=== PATIENT | female | born 1970 | race African-American/Black ===

== ENCOUNTER 2019-01-25 15:02 | Emergency (ER) | payer OTHER ==
[~2019-01-25] VITALS: Ht 167.6 cm; Wt 74.8 kg
--- NOTE | 2019-01-25 15:12 | NUR ---
PT IS A/OX4, PRESENTS TO THE ER C/O SOB. PT REPORTS HX OF ASTHMA AND HAS ALWAYS FELT SOB BUT FELT WORSE TODAY AND RESCUE INHALER WAS INFFECTIVE. PT PRESENTS W/ AUDIBLE WHEEZING AND LABORED BREATHING. PT DENIES PAIN, C/P, DIZZINESS, HEADACHE, N/V/D. ER MD AT BEDSIDE FOR MSE.
[2019-01-25] MEDS ORDERED: IPRATROPIUM BROMIDE 0.5 MG/2.5 ML NEBU NEB ONE ×2 (15:15→16:45)
[2019-01-25] MEDS ORDERED: ALBUTEROL SULFATE 2.5 MG/3 ML NEBU NEB ONE ×2 (15:15→16:45)
[2019-01-25] MEDS ORDERED: methylPREDNISolone SOD SUCC 125 MG/2 ML VIAL IV ONE (15:15)
[2019-01-25] MEDS ORDERED: IPRATROPIUM BROMIDE 0.5 MG/2.5 ML NEBU ONE ×2 (15:24→16:45)
[2019-01-25] MEDS ORDERED: ALBUTEROL SULFATE 2.5 MG/ 0.5 ML NEBU ONE (15:24)
[2019-01-25 15:30] LABS: BASOPHILS % (AUTO) 0.7 % (0.0-2.0); EOSINOPHILS # (AUTO) 0.9 K/uL (0.0-0.7); EOSINOPHILS % (AUTO) 14.5 % (0.0-7.0); HEMATOCRIT 47.2 % (31.2-41.9); HEMOGLOBIN 16.2 g/dL (10.9-14.3); LYMPHOCYTES # (AUTO) 1.7 K/uL (20.0-40.0); MEAN CORPUSCULAR HEMOGLOBIN 30.7 uug (24.7-32.8); MEAN CORPUSCULAR HGB CONC 34 g/dL (32.3-35.6); MEAN CORPUSCULAR VOLUME 89.7 fL (75.5-95.3); MONOCYTES # (AUTO) 0.4 K/uL (2.0-10.0); MONOCYTES % (AUTO) 6.1 % (0.0-11.0); NEUTROPHILS # (AUTO) 3.3 K/uL (1.8-8.9); NEUTROPHILS % (AUTO) 51.7 % (38.5-71.5); PLATELET COUNT (AUTO) 255 K/uL (179-408); RED BLOOD CELL COUNT(AUTO) 5.26 MIL/uL (3.63-4.92); WHITE BLOOD COUNT (AUTO) 6.4 K/uL (3.8-11.8)
[2019-01-25] MEDS ORDERED: methylPREDNISolone SOD SUCC 125 MG/2 ML VIAL ONE (15:31)
[2019-01-25 15:43] LABS: CREATININE 0.9 mg/dL (0.6-1.3); POTASSIUM 2.9 mmol/L (3.5-5.1)
[2019-01-25 15:49] LABS: BILIRUBIN,DIRECT 0.2 mg/dL (0.0-0.2); BILIRUBIN,TOTAL 0.6 mg/dL (0.2-1.0); TOTAL PROTEIN, SERUM 7.6 g/dL (6.4-8.2)
[2019-01-25] MEDS ORDERED: POTASSIUM CHLORIDE 20 MEQ TAB.PRT.SR PO ONE (16:00)
[2019-01-25] MEDS ORDERED: POTASSIUM CHLORIDE 20 MEQ TAB.PRT.SR ONE (16:21)
[2019-01-25] MEDS ORDERED: ALBUTEROL SULFATE 2.5 MG/3 ML NEBU ONE (16:45)
--- NOTE | 2019-01-25 17:34 | NUR ---
Patient discharged to home in stable conditon. Written and verbal after care instructions given. Patient verbalizes understanding of instructions. ALL BELONGINGS W/ PT. PT SELF-AMBULATED W/O DIFFICULTY. 20G IV ACCESS IN RAC REMOVED PRIOR TO D/C - INNER CANNULA INTACT.
[2019-01-25 17:35] VITALS: BP 141/68
== END 2019-01-25 17:36 | disposition home or self-care (01) ==
LOC: ER 15:03
DX: J45.901 Unspecified asthma with (acute) exacerbation (principal); E87.6 Hypokalemia; R60.9 Edema, unspecified; Z88.0 Allergy status to penicillin
CPT/HCPCS: 36415; 71045; 80048; 80076; 83880; 84484; 85025; 93005; 94640; 94644; 96374; 99285; J2930; 70030-TC; A4663; J3590

== ENCOUNTER 2019-02-15 20:17 | Inpatient (IN) | payer MEDICAID, OTHER ==
[~2019-02-15] VITALS: Ht 167.6 cm; Wt 72.6 kg
[2019-02-15] MEDS ORDERED: PREDNISONE 20 MG (20:29)
[2019-02-15] MEDS ORDERED: SYMBICORT (20:29)
[2019-02-15] MEDS ORDERED: ALBUTEROL 90 MCG (20:29)
[2019-02-15] MEDS ORDERED: ACETYLCYST (20:29)
[2019-02-15] MEDS ORDERED: IBUPROFEN 800 MG (20:29)
[2019-02-15] MEDS ORDERED: methylPREDNISolone SOD SUCC 125 MG/2 ML VIAL IV ONE (20:45)
[2019-02-15] MEDS ORDERED: ALBUTEROL SULFATE 2.5 MG/3 ML NEBU NEB ONE (20:45)
[2019-02-15] MEDS ORDERED: MAGNESIUM SULFATE 2 GM in IV DEXTROSE 5% 100 ML IV ONE (20:45)
[2019-02-15] MEDS ORDERED: IV NORMAL SALINE 1000 ML BAG IV ONE ×2 (20:45→21:00)
[2019-02-15] MEDS ORDERED: IPRATROPIUM BROMIDE 0.5 MG/2.5 ML NEBU NEB ONE (20:45)
[2019-02-15] MEDS ORDERED: IPRATROPIUM BROMIDE 0.5 MG/2.5 ML NEBU ONE (20:56)
[2019-02-15] MEDS ORDERED: ALBUTEROL SULFATE 2.5 MG/ 0.5 ML NEBU ONE (20:56)
[2019-02-15] MEDS ORDERED: methylPREDNISolone SOD SUCC 125 MG/2 ML VIAL ONE (21:03)
[2019-02-15] MEDS ORDERED: MAGNESIUM SULFATE 1 GM/2 ML VIAL ONE (21:04)
[2019-02-15 21:09] LABS: BASOPHILS # (AUTO) 0.1 K/uL (0.0-8.0); BASOPHILS % (AUTO) 1.4 % (0.0-2.0); CREATININE 0.7 mg/dL (0.6-1.3); EOSINOPHILS % (AUTO) 16.3 % (0.0-7.0); HEMATOCRIT 44.7 % (31.2-41.9); HEMOGLOBIN 15.3 g/dL (10.9-14.3); LYMPHOCYTES # (AUTO) 1.7 K/uL (20.0-40.0); LYMPHOCYTES % (AUTO) 28.8 % (20.5-51.5); MEAN CORPUSCULAR HEMOGLOBIN 30.9 uug (24.7-32.8); MEAN CORPUSCULAR HGB CONC 34 g/dL (32.3-35.6); MEAN CORPUSCULAR VOLUME 90.1 fL (75.5-95.3); MONOCYTES # (AUTO) 0.5 K/uL (2.0-10.0); MONOCYTES % (AUTO) 8.7 % (0.0-11.0); NEUTROPHILS # (AUTO) 2.6 K/uL (1.8-8.9); NEUTROPHILS % (AUTO) 44.8 % (38.5-71.5); PLATELET COUNT (AUTO) 294 K/uL (179-408); RED BLOOD CELL COUNT(AUTO) 4.95 MIL/uL (3.63-4.92); WHITE BLOOD COUNT (AUTO) 5.8 K/uL (3.8-11.8)
[2019-02-15] MEDS ORDERED: ONDANSETRON 4 MG/2 ML VIAL IV PRN (23:30)
[2019-02-15] MEDS ORDERED: ACETAMINOPHEN 325 MG TABLET PO PRN (23:30)
[2019-02-15] MEDS ORDERED: Z GUARD REMEDY PASTE 57 GM TUBE TOP PRN (23:30)
[2019-02-15] MEDS ORDERED: MAGNESIUM HYDROXIDE 30 ML LIQUID UDC PO PRN (23:30)
[2019-02-16 00:31] VITALS: BP 128/86
[2019-02-16] MEDS: IV NS 1000 ML 1,000 ML IV PRN ×2 (01:02→13:31)
[2019-02-16] MEDS: ALBUTEROL SULFATE 2.5 MG/3 ML NEBU NEB SCH ×6 (02:24→22:49)
[2019-02-16] MEDS: IPRATROPIUM BROMIDE 0.5 MG/2.5 ML NEBU NEB SCH ×6 (02:24→22:49)
[2019-02-16 04:00] VITALS: BP 122/62
[2019-02-16 06:30] LABS: HEMATOCRIT 40.2 % (31.2-41.9); LYMPHOCYTES # (AUTO) 0.5 K/uL (20.0-40.0); LYMPHOCYTES % (AUTO) 7.8 % (20.5-51.5); MEAN CORPUSCULAR HEMOGLOBIN 31.1 uug (24.7-32.8); MEAN CORPUSCULAR HGB CONC 35 g/dL (32.3-35.6); MONOCYTES # (AUTO) 0.1 K/uL (2.0-10.0); NEUTROPHILS % (AUTO) 91.2 % (38.5-71.5); PLATELET COUNT (AUTO) 283 K/uL (179-408); RED BLOOD CELL COUNT(AUTO) 4.51 MIL/uL (3.63-4.92); WHITE BLOOD COUNT (AUTO) 6.6 K/uL (3.8-11.8)
[2019-02-16] MEDS: PANTOPRAZOLE SODIUM 40 MG TABLET.DR PO SCH (06:30)
[2019-02-16 06:48] LABS: CREATININE 0.8 mg/dL (0.6-1.3); MAGNESIUM 2.2 mg/dL (1.8-2.4); PHOSPHOROUS 1.7 mg/dL (2.5-4.9); POTASSIUM 3.9 mmol/L (3.5-5.1)
[2019-02-16 07:01] LABS: THYROID STIMULATING HORMONE 0.564 mIU/mL (0.358-3.740)
[2019-02-16] MEDS ORDERED: methylPREDNISolone SOD SUCC 40 MG/ML VIAL IV SCH (09:00)
[2019-02-16] MEDS ORDERED: ACET200V4 IH (11:05)
[2019-02-16] MEDS ORDERED: ALBU8HFA4 INH (11:07)
[2019-02-16] MEDS ORDERED: IBUP-1957 PO (11:08)
[2019-02-16] MEDS ORDERED: BUDE10.2 INH (11:09)
[2019-02-16] MEDS ORDERED: HYDR25TA4 PO (11:09)
[2019-02-16] MEDS ORDERED: MONT10TA22 PO (11:10)
[2019-02-16] MEDS ORDERED: NIFE60TA69 PO (11:10)
[2019-02-16] MEDS ORDERED: PANT40TA2 PO (11:11)
[2019-02-16] MEDS ORDERED: IPRA3AMP23 IH (11:11)
[2019-02-16 11:16] VITALS: BP 127/77
[2019-02-16] MEDS: methylPREDNISolone SOD SUCC 40 MG/ML VIAL IV SCH ×2 (14:29→21:34)
[2019-02-16] MEDS: LEVOFLOXACIN 500 MG TABLET PO SCH (14:29)
[2019-02-16 15:10] VITALS: BP 143/83
[2019-02-16] MEDS ORDERED: NEUTRA PHOS PACKET PO ONE (15:45)
[2019-02-16] MEDS: FLUTICASONE/VILANTEROL 1 EACH BLST.W.DEV INH SCH (16:30)
[2019-02-16 20:00] VITALS: BP 166/99
[2019-02-17] MEDS: MELATONIN 3 MG TABLET PO PRN ×2 (00:36→22:38)
[2019-02-17] MEDS ORDERED: NIFEdipine XL 60 MG TABSR PO ONE (01:30)
[2019-02-17] MEDS ORDERED: HYDROCHLOROTHIAZIDE 25 MG TABLET PO ONE (01:30)
[2019-02-17] MEDS: IPRATROPIUM BROMIDE 0.5 MG/2.5 ML NEBU NEB SCH ×5 (02:57→19:55)
[2019-02-17] MEDS: ALBUTEROL SULFATE 2.5 MG/3 ML NEBU NEB SCH ×5 (02:57→19:55)
[2019-02-17 05:28] VITALS: BP 143/82
[2019-02-17] MEDS: methylPREDNISolone SOD SUCC 40 MG/ML VIAL IV SCH ×3 (05:58→22:30)
[2019-02-17] MEDS: PANTOPRAZOLE SODIUM 40 MG TABLET.DR PO SCH (06:02)
[2019-02-17] MEDS: IV NS 1000 ML 1,000 ML IV PRN ×3 (06:38→22:48)
[2019-02-17 07:00] LABS: CREATININE 0.8 mg/dL (0.6-1.3); PHOSPHOROUS 3.4 mg/dL (2.5-4.9); POTASSIUM 3.8 mmol/L (3.5-5.1)
[2019-02-17] MEDS: NIFEdipine XL 60 MG TABSR PO SCH (08:33)
[2019-02-17] MEDS: HYDROCHLOROTHIAZIDE 25 MG TABLET PO SCH (08:33)
[2019-02-17] MEDS: MONTELUKAST SODIUM 10 MG TABLET PO SCH (08:34)
[2019-02-17] MEDS: FLUTICASONE/VILANTEROL 1 EACH BLST.W.DEV INH SCH (08:34)
[2019-02-17] MEDS ORDERED: PANTOPRAZOLE SODIUM 40 MG TABLET.DR PO SCH (09:00)
[2019-02-17 11:12] VITALS: BP 123/71
[2019-02-17] MEDS: LEVOFLOXACIN 500 MG TABLET PO SCH (14:23)
[2019-02-17 15:32] VITALS: BP 125/86
[2019-02-17 20:08] VITALS: BP 129/69
[2019-02-18] MEDS: IPRATROPIUM BROMIDE 0.5 MG/2.5 ML NEBU NEB SCH ×7 (02:50→23:31)
[2019-02-18] MEDS: ALBUTEROL SULFATE 2.5 MG/3 ML NEBU NEB SCH ×7 (02:50→23:31)
[2019-02-18] MEDS: PANTOPRAZOLE SODIUM 40 MG TABLET.DR PO SCH (06:46)
[2019-02-18] MEDS: methylPREDNISolone SOD SUCC 40 MG/ML VIAL IV SCH ×2 (06:51→20:43)
[2019-02-18 06:53] VITALS: BP 122/71
[2019-02-18 07:29] LABS: BASOPHILS % (AUTO) 0.2 % (0.0-2.0); HEMATOCRIT 39.2 % (31.2-41.9); HEMOGLOBIN 13.7 g/dL (10.9-14.3); LYMPHOCYTES # (AUTO) 0.8 K/uL (20.0-40.0); LYMPHOCYTES % (AUTO) 8.4 % (20.5-51.5); MEAN CORPUSCULAR HEMOGLOBIN 31.4 uug (24.7-32.8); MEAN CORPUSCULAR HGB CONC 35 g/dL (32.3-35.6); MEAN CORPUSCULAR VOLUME 90.2 fL (75.5-95.3); MONOCYTES # (AUTO) 0.4 K/uL (2.0-10.0); MONOCYTES % (AUTO) 3.9 % (0.0-11.0); NEUTROPHILS % (AUTO) 87.5 % (38.5-71.5); PLATELET COUNT (AUTO) 271 K/uL (179-408); RED BLOOD CELL COUNT(AUTO) 4.35 MIL/uL (3.63-4.92)
[2019-02-18 07:36] LABS: CREATININE 0.8 mg/dL (0.6-1.3); MAGNESIUM 1.7 mg/dL (1.8-2.4); PHOSPHOROUS 3.2 mg/dL (2.5-4.9); POTASSIUM 3.5 mmol/L (3.5-5.1)
[2019-02-18 07:46] LABS: WHITE BLOOD COUNT (AUTO) 9.1 K/uL (3.8-11.8)
[2019-02-18] MEDS: HYDROCHLOROTHIAZIDE 25 MG TABLET PO SCH (08:33)
[2019-02-18] MEDS: MONTELUKAST SODIUM 10 MG TABLET PO SCH (08:33)
[2019-02-18] MEDS: NIFEdipine XL 60 MG TABSR PO SCH (08:34)
[2019-02-18] MEDS ORDERED: MAGNESIUM OXIDE 400 MG TABLET PO ONE (10:15)
[2019-02-18 11:45] VITALS: BP 126/81
[2019-02-18] MEDS: LEVOFLOXACIN 500 MG TABLET PO SCH (13:36)
[2019-02-18 16:02] VITALS: BP 123/85
[2019-02-18 20:23] VITALS: BP 114/79
[2019-02-18] MEDS: MELATONIN 3 MG TABLET PO PRN (23:27)
[2019-02-19] MEDS: IPRATROPIUM BROMIDE 0.5 MG/2.5 ML NEBU NEB SCH ×6 (03:19→22:39)
[2019-02-19] MEDS: ALBUTEROL SULFATE 2.5 MG/3 ML NEBU NEB SCH ×6 (03:19→22:39)
[2019-02-19] MEDS: PANTOPRAZOLE SODIUM 40 MG TABLET.DR PO SCH (06:30)
[2019-02-19 06:35] LABS: CREATININE 0.8 mg/dL (0.6-1.3); MAGNESIUM 1.8 mg/dL (1.8-2.4); PHOSPHOROUS 3.5 mg/dL (2.5-4.9); POTASSIUM 3.4 mmol/L (3.5-5.1)
[2019-02-19 06:38] LABS: BASOPHILS % (AUTO) 0.2 % (0.0-2.0); HEMATOCRIT 41.2 % (31.2-41.9); HEMOGLOBIN 14.4 g/dL (10.9-14.3); LYMPHOCYTES # (AUTO) 0.9 K/uL (20.0-40.0); LYMPHOCYTES % (AUTO) 14.9 % (20.5-51.5); MEAN CORPUSCULAR HEMOGLOBIN 31.2 uug (24.7-32.8); MEAN CORPUSCULAR HGB CONC 35 g/dL (32.3-35.6); MEAN CORPUSCULAR VOLUME 89.3 fL (75.5-95.3); MONOCYTES # (AUTO) 0.5 K/uL (2.0-10.0); MONOCYTES % (AUTO) 7.5 % (0.0-11.0); NEUTROPHILS # (AUTO) 4.9 K/uL (1.8-8.9); NEUTROPHILS % (AUTO) 77.4 % (38.5-71.5); PLATELET COUNT (AUTO) 282 K/uL (179-408); RED BLOOD CELL COUNT(AUTO) 4.61 MIL/uL (3.63-4.92); WHITE BLOOD COUNT (AUTO) 6.4 K/uL (3.8-11.8)
[2019-02-19 06:46] VITALS: BP 136/95
[2019-02-19] MEDS ORDERED: POTASSIUM CHLORIDE 20 MEQ TAB.PRT.SR PO ONE (08:30)
[2019-02-19] MEDS: methylPREDNISolone SOD SUCC 40 MG/ML VIAL IV SCH ×2 (08:44→20:09)
[2019-02-19] MEDS: MONTELUKAST SODIUM 10 MG TABLET PO SCH (08:44)
[2019-02-19] MEDS: NIFEdipine XL 60 MG TABSR PO SCH (08:45)
[2019-02-19] MEDS: HYDROCHLOROTHIAZIDE 25 MG TABLET PO SCH (08:45)
[2019-02-19 11:38] VITALS: BP 128/86
[2019-02-19] MEDS: LEVOFLOXACIN 500 MG TABLET PO SCH (13:28)
[2019-02-19 16:10] VITALS: BP 113/69
[2019-02-19 20:11] VITALS: BP 115/75
[2019-02-19] MEDS: MELATONIN 3 MG TABLET PO PRN (23:30)
[2019-02-20] MEDS: ALBUTEROL SULFATE 2.5 MG/3 ML NEBU NEB SCH ×4 (03:20→15:41)
[2019-02-20] MEDS: IPRATROPIUM BROMIDE 0.5 MG/2.5 ML NEBU NEB SCH ×4 (03:20→15:41)
[2019-02-20 06:33] LABS: BASOPHILS % (AUTO) 0.2 % (0.0-2.0); EOSINOPHILS % (AUTO) 0.1 % (0.0-7.0); HEMOGLOBIN 14.1 g/dL (10.9-14.3); LYMPHOCYTES # (AUTO) 1.1 K/uL (20.0-40.0); LYMPHOCYTES % (AUTO) 13.5 % (20.5-51.5); MEAN CORPUSCULAR HEMOGLOBIN 31.2 uug (24.7-32.8); MEAN CORPUSCULAR HGB CONC 35 g/dL (32.3-35.6); MEAN CORPUSCULAR VOLUME 88.3 fL (75.5-95.3); MONOCYTES # (AUTO) 0.7 K/uL (2.0-10.0); MONOCYTES % (AUTO) 8.8 % (0.0-11.0); NEUTROPHILS # (AUTO) 6.2 K/uL (1.8-8.9); NEUTROPHILS % (AUTO) 77.4 % (38.5-71.5); PLATELET COUNT (AUTO) 280 K/uL (179-408); RED BLOOD CELL COUNT(AUTO) 4.53 MIL/uL (3.63-4.92)
[2019-02-20] MEDS: PANTOPRAZOLE SODIUM 40 MG TABLET.DR PO SCH (06:33)
[2019-02-20 06:48] LABS: CREATININE 0.8 mg/dL (0.6-1.3); MAGNESIUM 1.9 mg/dL (1.8-2.4); PHOSPHOROUS 3.7 mg/dL (2.5-4.9); POTASSIUM 3.6 mmol/L (3.5-5.1)
[2019-02-20 06:53] VITALS: BP 125/72
[2019-02-20] MEDS: HYDROCHLOROTHIAZIDE 25 MG TABLET PO SCH (08:17)
[2019-02-20] MEDS: NIFEdipine XL 60 MG TABSR PO SCH (08:17)
[2019-02-20] MEDS: MONTELUKAST SODIUM 10 MG TABLET PO SCH (08:17)
[2019-02-20] MEDS: methylPREDNISolone SOD SUCC 40 MG/ML VIAL IV SCH (08:25)
[2019-02-20] MEDS ORDERED: IPRA12.9 INH (10:58)
[2019-02-20] MEDS ORDERED: ALBU2.5V38 NEB (10:58)
[2019-02-20] MEDS ORDERED: LORA10TA7 PO (10:58)
[2019-02-20] MEDS ORDERED: METH4TAB3 PO (10:58)
[2019-02-20] MEDS ORDERED: LEVO500T2 PO (10:58)
[2019-02-20 11:20] VITALS: BP 124/86
[2019-02-20] MEDS: LEVOFLOXACIN 500 MG TABLET PO SCH (13:31)
[2019-02-20 15:40] VITALS: BP 129/85
[2019-02-20] MEDS ORDERED: predniSONE 20 MG TABLET PO SCH (18:00)
== END 2019-02-20 17:50 | disposition home or self-care (01) | DRG 141 ==
LOC: ER 20:19 → TELE3 23:39 → MEDSURG3 02-16 11:10
PROVIDERS: ADMIT Registered Nurse; ATTEND Registered Nurse
DX: J45.901 Unspecified asthma with (acute) exacerbation (principal); J18.9 Pneumonia, unspecified organism; E83.39 Other disorders of phosphorus metabolism; K21.9 Gastro-esophageal reflux disease without esophagitis; I10 Essential (primary) hypertension; E86.0 Dehydration; J32.9 Chronic sinusitis, unspecified; E87.6 Hypokalemia; J34.2 Deviated nasal septum; Z90.710 Acquired absence of both cervix and uterus; E66.9 Obesity, unspecified
CPT/HCPCS: 36415; 70220; 70486; 71045; 83735; 84100; 84443; 85025; 93005; 94640; 94664; A4663; G0378; J2920; J2930; J3475; J3590; J7030; J7060; J7512

== ENCOUNTER 2019-02-28 15:02 | Inpatient (IN) | payer MEDICAID ==
[~2019-02-28] VITALS: Ht 167.6 cm; Wt 77.1 kg
[~2019-02-28 15:02] MED LIST: ACET200V4 IH; ALBU2.5V38 NEB; ALBU8HFA4 INH; BUDE10.2 INH; HYDR25TA4 PO; IBUP-1957 PO; IPRA12.9 INH; IPRA3AMP23 IH; LEVO500T2 PO; LORA10TA7 PO; METH4TAB3 PO; MONT10TA22 PO; NIFE60TA69 PO; PANT40TA2 PO
[2019-02-28] MEDS ORDERED: PANTOPRAZOLE SODIUM 40 MG VIAL IV ONE (15:30)
[2019-02-28] MEDS ORDERED: ALBUTEROL SULFATE 2.5 MG/3 ML NEBU NEB ONE (15:30)
[2019-02-28] MEDS ORDERED: DICYCLOMINE HCL LIQ 10 MG/5 ML UDC PO ONE (15:30)
[2019-02-28] MEDS ORDERED: IPRATROPIUM BROMIDE 0.5 MG/2.5 ML NEBU NEB ONE (15:30)
[2019-02-28] MEDS ORDERED: MAG HYDROX/AL HYDROX/SIMETH 30 ML LIQUID UDC PO ONE (15:30)
[2019-02-28] MEDS ORDERED: methylPREDNISolone SOD SUCC 125 MG/2 ML VIAL IV ONE (15:30)
[2019-02-28] MEDS ORDERED: IV NORMAL SALINE 1000 ML BAG IV ONE (15:30)
[2019-02-28] MEDS ORDERED: DICYCLOMINE HCL LIQ 10 MG/5 ML UDC ONE (15:32)
[2019-02-28] MEDS ORDERED: methylPREDNISolone SOD SUCC 125 MG/2 ML VIAL ONE (15:32)
[2019-02-28] MEDS ORDERED: PANTOPRAZOLE SODIUM 40 MG VIAL ONE (15:32)
[2019-02-28] MEDS ORDERED: MAG HYDROX/AL HYDROX/SIMETH 30 ML LIQUID UDC ONE ×2 (15:33→15:34)
[2019-02-28] MEDS ORDERED: IPRATROPIUM BROMIDE 0.5 MG/2.5 ML NEBU ONE (15:35)
[2019-02-28] MEDS ORDERED: ALBUTEROL SULFATE 2.5 MG/3 ML NEBU ONE (15:35)
[2019-02-28 15:50] LABS: BASOPHILS # (AUTO) 0.1 K/uL (0.0-8.0); BASOPHILS % (AUTO) 0.7 % (0.0-2.0); EOSINOPHILS # (AUTO) 1.1 K/uL (0.0-0.7); EOSINOPHILS % (AUTO) 11.8 % (0.0-7.0); HEMATOCRIT 45.3 % (31.2-41.9); HEMOGLOBIN 15.5 g/dL (10.9-14.3); LYMPHOCYTES # (AUTO) 2.6 K/uL (20.0-40.0); LYMPHOCYTES % (AUTO) 27.8 % (20.5-51.5); MEAN CORPUSCULAR HEMOGLOBIN 30.7 uug (24.7-32.8); MEAN CORPUSCULAR HGB CONC 34 g/dL (32.3-35.6); MEAN CORPUSCULAR VOLUME 89.8 fL (75.5-95.3); MONOCYTES # (AUTO) 0.8 K/uL (2.0-10.0); MONOCYTES % (AUTO) 7.9 % (0.0-11.0); NEUTROPHILS # (AUTO) 4.9 K/uL (1.8-8.9); NEUTROPHILS % (AUTO) 51.8 % (38.5-71.5); PLATELET COUNT (AUTO) 282 K/uL (179-408); RED BLOOD CELL COUNT(AUTO) 5.04 MIL/uL (3.63-4.92); WHITE BLOOD COUNT (AUTO) 9.5 K/uL (3.8-11.8)
[2019-02-28 16:02] LABS: CREATININE 0.7 mg/dL (0.6-1.3); POTASSIUM 3.6 mmol/L (3.5-5.1)
[2019-02-28 16:15] LABS: BILIRUBIN,DIRECT 0.1 mg/dL (0.0-0.2); BILIRUBIN,TOTAL 0.7 mg/dL (0.2-1.0); TOTAL PROTEIN, SERUM 6.6 g/dL (6.4-8.2)
[2019-02-28] MEDS ORDERED: MAGNESIUM HYDROXIDE 30 ML LIQUID UDC PO PRN (17:15)
[2019-02-28] MEDS ORDERED: ACETAMINOPHEN 325 MG TABLET PO PRN (17:15)
[2019-02-28] MEDS ORDERED: ZOLPIDEM 5 MG TABLET PO PRN (17:15)
[2019-02-28] MEDS ORDERED: ONDANSETRON 4 MG/2 ML VIAL IV PRN (17:15)
[2019-02-28] MEDS ORDERED: Z GUARD REMEDY PASTE 57 GM TUBE TOP PRN (17:15)
[2019-02-28] MEDS ORDERED: IBUPROFEN 800 MG TABLET PO PRN (17:15)
[2019-02-28] MEDS ORDERED: HYDROCODONE/APAP 5-325MG TABLET PO PRN (17:15)
[2019-02-28 17:35] VITALS: BP 124/68
[2019-02-28] MEDS: methylPREDNISolone SOD SUCC 125 MG/2 ML VIAL IV SCH ×2 (18:54→23:51)
[2019-02-28 19:58] VITALS: BP 108/76
[2019-02-28] MEDS: GUAIFENESIN LA 600 MG TABLET.SA PO SCH (21:08)
[2019-03-01] VITALS: BP 110/62
[2019-03-01] MEDS: IPRATROPIUM BROMIDE 0.5 MG/2.5 ML NEBU NEB PRN ×4 (03:15→21:28)
[2019-03-01] MEDS: ALBUTEROL SULFATE 2.5 MG/3 ML NEBU NEB PRN ×4 (03:15→21:29)
[2019-03-01 04:00] VITALS: BP 113/68
[2019-03-01] MEDS: methylPREDNISolone SOD SUCC 125 MG/2 ML VIAL IV SCH ×4 (06:25→23:58)
[2019-03-01 07:01] LABS: CREATININE 0.8 mg/dL (0.6-1.3); POTASSIUM 3.6 mmol/L (3.5-5.1)
[2019-03-01 07:13] LABS: THYROID STIMULATING HORMONE 0.335 mIU/mL (0.358-3.740)
[2019-03-01 07:28] LABS: BASOPHILS % (AUTO) 0.2 % (0.0-2.0); EOSINOPHILS % (AUTO) 0.1 % (0.0-7.0); HEMATOCRIT 41.3 % (31.2-41.9); HEMOGLOBIN 14.4 g/dL (10.9-14.3); LYMPHOCYTES # (AUTO) 0.6 K/uL (20.0-40.0); LYMPHOCYTES % (AUTO) 4.2 % (20.5-51.5); MEAN CORPUSCULAR HEMOGLOBIN 31.1 uug (24.7-32.8); MEAN CORPUSCULAR HGB CONC 35 g/dL (32.3-35.6); MEAN CORPUSCULAR VOLUME 89.1 fL (75.5-95.3); MONOCYTES # (AUTO) 0.1 K/uL (2.0-10.0); NEUTROPHILS # (AUTO) 13.1 K/uL (1.8-8.9); NEUTROPHILS % (AUTO) 94.5 % (38.5-71.5); PLATELET COUNT (AUTO) 277 K/uL (179-408); RED BLOOD CELL COUNT(AUTO) 4.63 MIL/uL (3.63-4.92)
[2019-03-01 07:47] LABS: WHITE BLOOD COUNT (AUTO) 13.9 K/uL (3.8-11.8)
[2019-03-01] MEDS: PANTOPRAZOLE SODIUM 40 MG TABLET.DR PO SCH (08:41)
[2019-03-01] MEDS: NIFEdipine XL 60 MG TABSR PO SCH (08:41)
[2019-03-01] MEDS: GUAIFENESIN LA 600 MG TABLET.SA PO SCH ×2 (08:41→20:45)
[2019-03-01] MEDS: MONTELUKAST SODIUM 10 MG TABLET PO SCH (08:41)
[2019-03-01] MEDS: HYDROCHLOROTHIAZIDE 25 MG TABLET PO SCH (08:42)
[2019-03-01 11:47] VITALS: BP 134/81
[2019-03-01] MEDS ORDERED: MAG HYDROX/AL HYDROX/SIMETH 30 ML LIQUID UDC PO PRN (14:30)
[2019-03-01 16:08] VITALS: BP 126/81
[2019-03-01 20:25] VITALS: BP 134/85
[2019-03-02 00:17] VITALS: BP 122/79
[2019-03-02] MEDS: IPRATROPIUM BROMIDE 0.5 MG/2.5 ML NEBU NEB PRN (02:31)
[2019-03-02] MEDS: ALBUTEROL SULFATE 2.5 MG/3 ML NEBU NEB PRN (02:31)
[2019-03-02 04:25] VITALS: BP 100/77
[2019-03-02] MEDS: methylPREDNISolone SOD SUCC 125 MG/2 ML VIAL IV SCH ×4 (05:45→23:31)
[2019-03-02] MEDS: PANTOPRAZOLE SODIUM 40 MG TABLET.DR PO SCH (08:33)
[2019-03-02] MEDS: GUAIFENESIN LA 600 MG TABLET.SA PO SCH ×2 (08:33→20:18)
[2019-03-02] MEDS: HYDROCHLOROTHIAZIDE 25 MG TABLET PO SCH (08:33)
[2019-03-02] MEDS: MONTELUKAST SODIUM 10 MG TABLET PO SCH (08:34)
[2019-03-02] MEDS: NIFEdipine XL 60 MG TABSR PO SCH (08:34)
[2019-03-02] MEDS: LEVOFLOXACIN 750MG/D5W 750 MG in PREMIXED 1 EACH IV SCH (10:27)
[2019-03-02 11:46] VITALS: BP 128/83
[2019-03-02] MEDS: ALBUTEROL SULFATE 2.5 MG/3 ML NEBU NEB SCH ×2 (12:48→19:45)
[2019-03-02] MEDS: IPRATROPIUM BROMIDE 0.5 MG/2.5 ML NEBU NEB SCH ×2 (12:48→19:45)
[2019-03-02 16:13] VITALS: BP 125/78
[2019-03-02 19:53] VITALS: BP 137/75
[2019-03-03] MEDS: ALBUTEROL SULFATE 2.5 MG/3 ML NEBU NEB SCH ×2 (02:20→08:01)
[2019-03-03] MEDS: IPRATROPIUM BROMIDE 0.5 MG/2.5 ML NEBU NEB SCH ×2 (02:20→08:00)
[2019-03-03 04:35] VITALS: BP 127/70
[2019-03-03] MEDS: methylPREDNISolone SOD SUCC 125 MG/2 ML VIAL IV SCH (05:45)
[2019-03-03] MEDS: HYDROCHLOROTHIAZIDE 25 MG TABLET PO SCH (08:21)
[2019-03-03] MEDS: PANTOPRAZOLE SODIUM 40 MG TABLET.DR PO SCH (08:22)
[2019-03-03] MEDS: GUAIFENESIN LA 600 MG TABLET.SA PO SCH (08:22)
[2019-03-03] MEDS: MONTELUKAST SODIUM 10 MG TABLET PO SCH (08:22)
[2019-03-03] MEDS: LEVOFLOXACIN 750MG/D5W 750 MG in PREMIXED 1 EACH IV SCH (08:22)
[2019-03-03] MEDS: NIFEdipine XL 60 MG TABSR PO SCH (08:22)
[2019-03-03 11:52] VITALS: BP 135/85
== END 2019-03-03 14:15 | disposition home or self-care (01) | DRG 140 ==
LOC: ER 15:02 → TELE3 17:14 → MEDSURG3 03-02 09:25
DX: J47.1 Bronchiectasis with (acute) exacerbation (principal); J96.01 Acute respiratory failure with hypoxia; J45.901 Unspecified asthma with (acute) exacerbation; K21.9 Gastro-esophageal reflux disease without esophagitis; Z88.0 Allergy status to penicillin; Z91.013 Allergy to seafood; Z79.51 Long term (current) use of inhaled steroids; Z79.899 Other long term (current) drug therapy; E66.9 Obesity, unspecified; Z68.27 Body mass index [BMI] 27.0-27.9, adult; I10 Essential (primary) hypertension
CPT/HCPCS: 36415; 70030-TC; 71045; 71250; 83735; 84100; 84443; 85025; 93005; 94640; 94664; A4663; C9113; G0378; J1956; J2930; J3590; J7030; J7050

== ENCOUNTER 2019-03-24 07:32 | Emergency (ER) | payer MEDICAID, OTHER ==
[~2019-03-24] VITALS: Ht 160 cm; Wt 72.6 kg
[~2019-03-24 07:32] MED LIST changes: -IPRA12.9 INH; -IPRA3AMP23 IH; -LEVO500T2 PO; -METH4TAB3 PO
--- NOTE | 2019-03-24 07:50 | NUR ---
Patient seen by
[2019-03-24] MEDS ORDERED: IPRATROPIUM BROMIDE 0.5 MG/2.5 ML NEBU NEB ONE ×2 (08:00→10:30)
[2019-03-24] MEDS ORDERED: MAGNESIUM SULFATE 2 GM in IV DEXTROSE 5% 100 ML IV ONE (08:00)
[2019-03-24] MEDS ORDERED: methylPREDNISolone SOD SUCC 125 MG/2 ML VIAL IV ONE (08:00)
[2019-03-24] MEDS ORDERED: ALBUTEROL SULFATE 2.5 MG/3 ML NEBU NEB ONE ×2 (08:00→10:30)
[2019-03-24] MEDS ORDERED: methylPREDNISolone SOD SUCC 125 MG/2 ML VIAL ONE (08:27)
[2019-03-24] MEDS ORDERED: MAGNESIUM SULFATE/D5W 200 ML ONE (08:27)
[2019-03-24] MEDS ORDERED: IPRATROPIUM BROMIDE 0.5 MG/2.5 ML NEBU ONE ×2 (08:28→10:40)
[2019-03-24] MEDS ORDERED: ALBUTEROL SULFATE 2.5 MG/3 ML NEBU ONE ×2 (08:28→10:40)
[2019-03-24] MEDS ORDERED: ALBUTEROL SULFATE 2.5 MG/ 0.5 ML NEBU ONE (08:29)
[2019-03-24 08:59] LABS: CREATININE 0.8 mg/dL (0.6-1.3); POTASSIUM 3.6 mmol/L (3.5-5.1)
[2019-03-24 09:06] LABS: BASOPHILS % (AUTO) 0.6 % (0.0-2.0); EOSINOPHILS % (AUTO) 17.9 % (0.0-7.0); HEMOGLOBIN 15.3 g/dL (10.9-14.3); LYMPHOCYTES # (AUTO) 1.7 K/uL (20.0-40.0); LYMPHOCYTES % (AUTO) 31.2 % (20.5-51.5); MEAN CORPUSCULAR HEMOGLOBIN 31.3 uug (24.7-32.8); MEAN CORPUSCULAR HGB CONC 35 g/dL (32.3-35.6); MEAN CORPUSCULAR VOLUME 90.3 fL (75.5-95.3); MONOCYTES # (AUTO) 0.5 K/uL (2.0-10.0); MONOCYTES % (AUTO) 9.6 % (0.0-11.0); NEUTROPHILS # (AUTO) 2.3 K/uL (1.8-8.9); NEUTROPHILS % (AUTO) 40.7 % (38.5-71.5); PLATELET COUNT (AUTO) 245 K/uL (179-408); RED BLOOD CELL COUNT(AUTO) 4.87 MIL/uL (3.63-4.92); WHITE BLOOD COUNT (AUTO) 5.6 K/uL (3.8-11.8)
--- NOTE | 2019-03-24 10:35 | NUR ---
second breathing treatment administered by RT
--- NOTE | 2019-03-24 11:16 | NUR ---
Patient given discharge instructions, prescription. IV removed. patient being discharged.
[2019-03-24 11:17] VITALS: BP 117/74
== END 2019-03-24 11:19 | disposition home or self-care (01) ==
LOC: ER 07:32
DX: J45.901 Unspecified asthma with (acute) exacerbation (principal); J44.9 Chronic obstructive pulmonary disease, unspecified; K21.9 Gastro-esophageal reflux disease without esophagitis; I10 Essential (primary) hypertension; Z79.1 Long term (current) use of non-steroidal anti-inflammatories (NSAID); Z79.899 Other long term (current) drug therapy; Z88.0 Allergy status to penicillin; Z91.013 Allergy to seafood
CPT/HCPCS: 36415; 71045; 80048; 84484; 85025; 93005; 94640; 94644; 96365; 96366; 96375; 99285; J2930; J3475; 70030-TC; A4663; J3590